=== PATIENT | male | born 1945 | race Two or more races ===

== ENCOUNTER 2021-04-24 18:18 | Inpatient (IN) | payer MEDICARE, OTHER ==
[~2021-04-24] VITALS: Ht 165.1 cm; Wt 71.7 kg
[~2021-04-24 18:18] MED LIST: CEFP200T14 PO; DOXY-326 PO
[2021-04-24 22:24] VITALS: BP 124/69
[2021-04-24] MEDS ORDERED: ZOLPIDEM TARTRATE 5 MG TABLET PO PRN (22:30)
[2021-04-24] MEDS ORDERED: ACETAMINOPHEN 325 MG TABLET PO PRN (22:30)
[2021-04-24] MEDS ORDERED: Z GUARD REMEDY 2 OZ OINT TP PRN (22:30)
[2021-04-24] MEDS ORDERED: MAGNESIUM HYDROXIDE 30 ML UDC PO PRN (22:30)
[2021-04-24] MEDS ORDERED: MAG HYDROX/AL HYDROX/SIMETH 30 ML UDC PO PRN (22:30)
[2021-04-24] MEDS ORDERED: ONDANSETRON HCL/PF 4 MG/2 ML VIAL IVP PRN (22:30)
[2021-04-25] MEDS ORDERED: POLY17PO4 PO (00:51)
[2021-04-25] MEDS ORDERED: HYDR-4209 PO (00:51)
[2021-04-25] MEDS ORDERED: POLYETHYLENE GLYCOL 3350 17 GM POWD.PACK PO PRN (03:00)
[2021-04-25] MEDS ORDERED: HYDROCODONE/APAP 5/325MG TABLET PO PRN (03:00)
[2021-04-25 06:54] LABS: BASOPHILS % (AUTO) 0.3 % (0.0-2.0); EOSINOPHILS % (AUTO) 0.6 % (0.0-6.0); HEMATOCRIT 29 % (39-51); LYMPHOCYTES # (AUTO) 0.6 K/uL (0.8-4.8); MEAN CORPUSCULAR HGB CONC 31 g/dl (31.0-36.0); MEAN CORPUSCULAR VOLUME 76 fL (80-96); MONOCYTES # (AUTO) 0.8 K/uL (0.1-1.30); MONOCYTES % (AUTO) 6.8 % (2.0-12.0); NEUTROPHILS # (AUTO) 10.9 K/uL (1.8-8.9); NEUTROPHILS % (AUTO) 87.3 % (43.0-81.0); PLATELET COUNT (AUTO) 530 K/uL (150-450); RED BLOOD CELL COUNT(AUTO) 3.79 MIL/uL (4.5-6.0); WHITE BLOOD COUNT (AUTO) 12.4 K/uL (4.3-11.0)
[2021-04-25 07:27] LABS: ALANINE AMINOTRANSFERASE 37 U/L (12-78); ALBUMIN 2.1 g/dL (3.4-5.0); ALKALINE PHOSPHATASE 151 U/L (46-116); ASPARTATE AMINOTRANSFERASE 24 U/L (15-37); BILIRUBIN,TOTAL 0.5 mg/dL (0.2-1.0); CARBON DIOXIDE 19 mmol/L (21-32); CHLORIDE 103 mmol/L (98-107); CREATININE 1.9 mg/dL (0.6-1.3); GLUCOSE 95 mg/dL (74-106); MAGNESIUM 2.6 mg/dL (1.8-2.4); PHOSPHORUS 5.7 mg/dL (2.5-4.9); POTASSIUM 4.9 mmol/L (3.5-5.1); SODIUM SERUM 137 mmol/L (136-145); TOTAL PROTEIN, SERUM 6.8 g/dL (6.4-8.2); UREA NITROGEN, BLOOD 49 mg/dL (7-18)
[2021-04-25 07:35] LABS: CHOLESTEROL 120 mg/dL (<200); HDL CHOLESTEROL 32 mg/dL (40-60); LDL 77 mg/dL (0-99); TRIGLYCERIDES 77 mg/dL (30-150)
[2021-04-25 08:00] VITALS: BP 117/60
[2021-04-25] MEDS ORDERED: [UNRECOGNIZED DRUG - OTHER] PO SCH (09:00)
[2021-04-25] MEDS: PANTOPRAZOLE 40 MG TABLET.DR PO SCH (09:25)
[2021-04-25] MEDS: IV NS 0.9% 1,000 ML IV SCH ×2 (10:52→20:42)
[2021-04-25 16:00] VITALS: BP 129/72
[2021-04-25 16:46] LABS: THYROID STIMULATING HORMONE 6.314 uIU/mL (0.358-3.74)
[2021-04-25] MEDS: CEFTRIAXONE 1 G in IV D5W 50 ML IV SCH (17:00)
[2021-04-25 17:45] LABS: PROSTATE SPECIFIC ANTIGEN SCR 0.57 ng/mL (0.00-4.00)
[2021-04-25 20:00] VITALS: BP 134/69
[2021-04-26 03:32] LABS: BILIRUBIN,URINE NEGATIVE (NEGATIVE); COLOR,URINE YELLOW (YELLOW); LEUKOCYTE ESTERASE ,URINE NEGATIVE (NEGATIVE); NITRITE, URINE NEGATIVE (NEGATIVE); PROTEIN,URINE TRACE mg/dl (NEGATIVE); UGLUCOSE NEGATIVE (NEGATIVE); UROBILINOGEN,URINE 0.2 EU/dL (0.2)
[2021-04-26 03:43] LABS: CREATININE, URINE 89.5 MG/DL (30.0-125.0)
[2021-04-26 03:44] LABS: BACTERIA,URINE None seen /HPF (None Seen); RBC,URINE 0-2 /HPF (0-2); SQUAMOUS EPITHELIAL CELL,UR Few /HPF (None Seen); URIC ACID CRYSTALS,URINE Many /HPF (None Seen); URINE AMORPHOUS URATE Moderate /HPF (None Seen); WBC,URINE 0-2 /HPF (0-3)
[2021-04-26] MEDS: IV NS 0.9% 1,000 ML IV SCH ×2 (06:23→20:22)
[2021-04-26 07:07] LABS: AFP, TUMOR MARKER 2.1 ng/mL (0.0-8.3); CARBOHYDRATE AG 19-9 6 U/mL (0-35)
[2021-04-26 08:00] VITALS: BP 124/62
[2021-04-26 08:07] LABS: IMMUNOGLOBULIN A, SERUM 243 mg/dL (61-437); IMMUNOGLOBULIN G, SERUM 1139 mg/dL (603-1613); IMMUNOGLOBULIN M, SERUM 53 mg/dL (15-143)
[2021-04-26 08:22] LABS: BASOPHILS % (AUTO) 0.3 % (0.0-2.0); EOSINOPHILS % (AUTO) 0.3 % (0.0-6.0); HEMATOCRIT 27 % (39-51); HEMOGLOBIN 8.5 g/dL (13.5-17.5); LYMPHOCYTES # (AUTO) 0.6 K/uL (0.8-4.8); LYMPHOCYTES % (AUTO) 5.7 % (20.0-44.0); MEAN CORPUSCULAR HGB CONC 32 g/dl (31.0-36.0); MEAN CORPUSCULAR VOLUME 77 fL (80-96); MONOCYTES # (AUTO) 0.9 K/uL (0.1-1.30); MONOCYTES % (AUTO) 8.3 % (2.0-12.0); NEUTROPHILS # (AUTO) 9.2 K/uL (1.8-8.9); NEUTROPHILS % (AUTO) 85.4 % (43.0-81.0); PLATELET COUNT (AUTO) 471 K/uL (150-450); RED BLOOD CELL COUNT(AUTO) 3.47 MIL/uL (4.5-6.0); WHITE BLOOD COUNT (AUTO) 10.7 K/uL (4.3-11.0)
[2021-04-26 08:40] LABS: CALCIUM, SERUM 8.3 mg/dL (8.5-10.1); CARBON DIOXIDE 21 mmol/L (21-32); CHLORIDE 104 mmol/L (98-107); CREATININE 1.4 mg/dL (0.6-1.3); GLUCOSE 104 mg/dL (74-106); MAGNESIUM 2.3 mg/dL (1.8-2.4); PHOSPHORUS 3.9 mg/dL (2.5-4.9); POTASSIUM 4.7 mmol/L (3.5-5.1); SODIUM SERUM 135 mmol/L (136-145); UREA NITROGEN, BLOOD 30 mg/dL (7-18)
[2021-04-26] MEDS: PANTOPRAZOLE 40 MG TABLET.DR PO SCH (08:53)
[2021-04-26 13:06] LABS: *SPE A/G RATIO 0.6 (0.7-1.7); *SPE ALPHA-1-GLOBULIN 0.6 g/dL (0.0-0.4); *SPE ALPHA-2-GLOBULIN 1.1 g/dL (0.4-1.0); *SPE BETA GLOBULIN 0.9 g/dL (0.7-1.3); *SPE M-SPIKE Not Observed g/dL (Not Observed)
[2021-04-26 16:00] VITALS: BP 121/58
[2021-04-26] MEDS: CEFTRIAXONE 1 G in IV D5W 50 ML IV SCH (16:20)
[2021-04-26 20:00] VITALS: BP 126/66
[2021-04-27 06:15] LABS: BASOPHILS % (AUTO) 0.5 % (0.0-2.0); EOSINOPHILS % (AUTO) 0.5 % (0.0-6.0); HEMATOCRIT 27 % (39-51); HEMOGLOBIN 8.4 g/dL (13.5-17.5); LYMPHOCYTES # (AUTO) 0.7 K/uL (0.8-4.8); LYMPHOCYTES % (AUTO) 6.9 % (20.0-44.0); MEAN CORPUSCULAR HGB CONC 32 g/dl (31.0-36.0); MEAN CORPUSCULAR VOLUME 76 fL (80-96); MONOCYTES # (AUTO) 0.9 K/uL (0.1-1.30); MONOCYTES % (AUTO) 8.8 % (2.0-12.0); NEUTROPHILS # (AUTO) 8.1 K/uL (1.8-8.9); NEUTROPHILS % (AUTO) 83.3 % (43.0-81.0); PLATELET COUNT (AUTO) 454 K/uL (150-450); RED BLOOD CELL COUNT(AUTO) 3.51 MIL/uL (4.5-6.0); WHITE BLOOD COUNT (AUTO) 9.7 K/uL (4.3-11.0)
[2021-04-27 06:44] LABS: CALCIUM, SERUM 8.6 mg/dL (8.5-10.1); CREATININE 1.2 mg/dL (0.6-1.3); MAGNESIUM 2.1 mg/dL (1.8-2.4); PHOSPHORUS 3.4 mg/dL (2.5-4.9); POTASSIUM 4.7 mmol/L (3.5-5.1)
[2021-04-27 08:20] VITALS: BP 124/62
[2021-04-27] MEDS: PANTOPRAZOLE 40 MG TABLET.DR PO SCH (08:50)
[2021-04-27] MEDS: IV NS 0.9% 1,000 ML IV SCH (08:50)
[2021-04-27] MEDS ORDERED: IOHEXOL-300 100 ML VIAL IV ONE (10:48)
[2021-04-27] MEDS: CEFTRIAXONE 1 G in IV D5W 50 ML IV SCH (15:17)
[2021-04-27 16:03] VITALS: BP 126/78
[2021-04-27] MEDS: ENSURE ENLIVE 237 ML LIQUID (VANILLA) PO SCH (17:00)
[2021-04-27 20:00] VITALS: BP 131/72
[2021-04-28] MEDS: IV NS 0.9% 1,000 ML IV SCH (02:15)
[2021-04-28 06:52] LABS: BASOPHILS % (AUTO) 0.5 % (0.0-2.0); EOSINOPHILS % (AUTO) 0.8 % (0.0-6.0); HEMATOCRIT 27 % (39-51); HEMOGLOBIN 8.4 g/dL (13.5-17.5); LYMPHOCYTES # (AUTO) 0.6 K/uL (0.8-4.8); MEAN CORPUSCULAR HGB CONC 31 g/dl (31.0-36.0); MEAN CORPUSCULAR VOLUME 76 fL (80-96); MONOCYTES # (AUTO) 0.9 K/uL (0.1-1.30); MONOCYTES % (AUTO) 9.4 % (2.0-12.0); NEUTROPHILS # (AUTO) 7.9 K/uL (1.8-8.9); NEUTROPHILS % (AUTO) 83.3 % (43.0-81.0); PLATELET COUNT (AUTO) 428 K/uL (150-450); WHITE BLOOD COUNT (AUTO) 9.5 K/uL (4.3-11.0)
[2021-04-28 06:57] LABS: CALCIUM, SERUM 8.5 mg/dL (8.5-10.1); POTASSIUM 4.3 mmol/L (3.5-5.1)
[2021-04-28 08:00] VITALS: BP 116/71
[2021-04-28] MEDS: PANTOPRAZOLE 40 MG TABLET.DR PO SCH (08:11)
[2021-04-28] MEDS: ENSURE ENLIVE 237 ML LIQUID (VANILLA) PO SCH ×3 (08:12→17:04)
[2021-04-28] MEDS: CEFTRIAXONE 1 G in IV D5W 50 ML IV SCH (15:39)
[2021-04-28 15:57] VITALS: BP 121/65
[2021-04-28 20:00] VITALS: BP 122/70
[2021-04-29] MEDS: PANTOPRAZOLE 40 MG TABLET.DR PO SCH (07:30)
[2021-04-29 08:00] VITALS: BP 124/66
[2021-04-29] MEDS: ENSURE ENLIVE 237 ML LIQUID (VANILLA) PO SCH ×3 (09:46→16:42)
[2021-04-29] MEDS: CEFTRIAXONE 1 G in IV D5W 50 ML IV SCH (15:12)
[2021-04-29 21:00] VITALS: BP 118/68
[2021-04-30 06:54] LABS: BASOPHILS # (AUTO) 0.1 K/uL (0.0-0.2); BASOPHILS % (AUTO) 0.5 % (0.0-2.0); EOSINOPHILS % (AUTO) 0.3 % (0.0-6.0); HEMATOCRIT 27 % (39-51); HEMOGLOBIN 8.4 g/dL (13.5-17.5); LYMPHOCYTES # (AUTO) 0.6 K/uL (0.8-4.8); LYMPHOCYTES % (AUTO) 4.7 % (20.0-44.0); MEAN CORPUSCULAR HGB CONC 32 g/dl (31.0-36.0); MEAN CORPUSCULAR VOLUME 75 fL (80-96); MONOCYTES # (AUTO) 0.9 K/uL (0.1-1.30); MONOCYTES % (AUTO) 7.5 % (2.0-12.0); NEUTROPHILS # (AUTO) 10.3 K/uL (1.8-8.9); PLATELET COUNT (AUTO) 410 K/uL (150-450); RED BLOOD CELL COUNT(AUTO) 3.51 MIL/uL (4.5-6.0); WHITE BLOOD COUNT (AUTO) 11.9 K/uL (4.3-11.0)
[2021-04-30 07:21] LABS: CALCIUM, SERUM 8.3 mg/dL (8.5-10.1); POTASSIUM 4.6 mmol/L (3.5-5.1)
[2021-04-30 08:00] VITALS: BP 103/67
[2021-04-30] MEDS: PANTOPRAZOLE 40 MG TABLET.DR PO SCH (08:08)
[2021-04-30] MEDS: ENSURE ENLIVE 237 ML LIQUID (VANILLA) PO SCH ×3 (08:08→16:17)
[2021-04-30] MEDS ORDERED: FENTANYL PF 250MCG/5ML AMPUL IV ONE (13:30)
[2021-04-30] MEDS ORDERED: MIDAZOLAM HCL 5MG/ML VIAL 25 MG/5 ML VIAL IV ONE (13:30)
[2021-04-30] MEDS ORDERED: NALOXONE PREFILLED SYRINGE 2 MG/2 ML SYRINGE IV ONE (13:30)
[2021-04-30] MEDS: CEFTRIAXONE 1 G in IV D5W 50 ML IV SCH (16:17)
[2021-04-30 20:00] VITALS: BP 121/69
[2021-05-01 06:49] LABS: BASOPHILS % (AUTO) 0.4 % (0.0-2.0); EOSINOPHILS % (AUTO) 0.4 % (0.0-6.0); HEMATOCRIT 26 % (39-51); HEMOGLOBIN 8.3 g/dL (13.5-17.5); LYMPHOCYTES # (AUTO) 0.6 K/uL (0.8-4.8); LYMPHOCYTES % (AUTO) 5.6 % (20.0-44.0); MEAN CORPUSCULAR HGB CONC 32 g/dl (31.0-36.0); MEAN CORPUSCULAR VOLUME 76 fL (80-96); MONOCYTES # (AUTO) 0.8 K/uL (0.1-1.30); MONOCYTES % (AUTO) 7.2 % (2.0-12.0); NEUTROPHILS # (AUTO) 9.2 K/uL (1.8-8.9); NEUTROPHILS % (AUTO) 86.4 % (43.0-81.0); PLATELET COUNT (AUTO) 450 K/uL (150-450); RED BLOOD CELL COUNT(AUTO) 3.44 MIL/uL (4.5-6.0); WHITE BLOOD COUNT (AUTO) 10.6 K/uL (4.3-11.0)
[2021-05-01 07:28] LABS: CALCIUM, SERUM 8.7 mg/dL (8.5-10.1); MAGNESIUM 2.2 mg/dL (1.8-2.4); PHOSPHORUS 3.8 mg/dL (2.5-4.9); POTASSIUM 5.4 mmol/L (3.5-5.1)
[2021-05-01 08:13] VITALS: BP 103/68
[2021-05-01] MEDS: PANTOPRAZOLE 40 MG TABLET.DR PO SCH (08:39)
[2021-05-01] MEDS: ENSURE ENLIVE 237 ML LIQUID (VANILLA) PO SCH (08:40)
[2021-05-03] MEDS ORDERED: HYDR-3976 PO (13:06)
== END 2021-05-01 12:30 | disposition home or self-care (01) | DRG 686 ==
LOC: MED 21:10
PROVIDERS: ADMIT Internal Medicine; ATTEND Internal Medicine
PROC: 0W993ZZ Drainage of Right Pleural Cavity, Percutaneous Approach (ICD-10-PCS; principal; 2021-04-25)
PROC: 0TB03ZX Excision of Right Kidney, Percutaneous Approach, Diagnostic (ICD-10-PCS; 2021-04-30)
DX: C64.2 Malignant neoplasm of left kidney, except renal pelvis (principal); J96.01 Acute respiratory failure with hypoxia; N17.0 Acute kidney failure with tubular necrosis; J90 Pleural effusion, not elsewhere classified; E87.2 Acidosis; D68.9 Coagulation defect, unspecified; J98.11 Atelectasis; C78.1 Secondary malignant neoplasm of mediastinum; E86.0 Dehydration; N13.9 Obstructive and reflux uropathy, unspecified; N28.89 Other specified disorders of kidney and ureter; K76.9 Liver disease, unspecified; E27.8 Other specified disorders of adrenal gland; D72.829 Elevated white blood cell count, unspecified; D50.9 Iron deficiency anemia, unspecified; R91.8 Other nonspecific abnormal finding of lung field; E11.9 Type 2 diabetes mellitus without complications; I70.0 Atherosclerosis of aorta; Z87.891 Personal history of nicotine dependence
CPT/HCPCS: 36415; 71045-TC; 71270-TC; 74178; 76770-TC; 76942-TC; 77012-TC; 80048-TC; 80053-TC; 80061-TC; 81001; 82105; 82378; 82570-TC; 82728-TC; 82784; 83540-TC; 83615-TC; 83735-TC; 84100-TC; 84153-TC; 84154-TC; 84155; 84165; 84300-TC; 84439-TC; 84443-TC; 84481; 84702-TC; 85025-TC; 85610-TC; 85730-TC; 86301; 86334; 87040-TC; 87070-TC; 87075-TC; 87081-TC; 87102-TC; 88108-TC; 88305-TC; 88314-TC; 89051-TC; 97112-TC; 97116-TC; 97530-TC; G0378; J0696; J2250; J2310; J3010; J7030; J7060; Q9967

== ENCOUNTER 2021-05-11 15:21 | Inpatient (IN) | payer MEDICARE, OTHER ==
[~2021-05-11] VITALS: Ht 167.6 cm; Wt 64.9 kg
[~2021-05-11 15:21] MED LIST changes: -CEFP200T14 PO; -DOXY-326 PO; +HYDR-3976 PO; +POLY17PO4 PO
--- NOTE | 2021-05-11 16:03 | NUR ---
THE PATIENT IS SENT BY AND BIB BROTHER ONCOLOGIST FOR ELEVATED WBC. THE PATIENT IS ALERT AND ORIENTED X2. DENIES PAIN. IN ROOM AIR AND DENIES SOB. RESPIRATION REGULAR AND UNLABORED. ATTACHED TO THE MONITOR.
[2021-05-11 16:35] LABS: BASOPHILS % (AUTO) 0.2 % (0.0-2.0); EOSINOPHILS % (AUTO) 0.2 % (0.0-6.0); HEMATOCRIT 25 % (39-51); HEMOGLOBIN 7.7 g/dL (13.5-17.5); LYMPHOCYTES # (AUTO) 0.7 K/uL (0.8-4.8); LYMPHOCYTES % (AUTO) 5.1 % (20.0-44.0); MEAN CORPUSCULAR HGB CONC 31 g/dl (31.0-36.0); MEAN CORPUSCULAR VOLUME 76 fL (80-96); MONOCYTES # (AUTO) 1.1 K/uL (0.1-1.30); MONOCYTES % (AUTO) 7.8 % (2.0-12.0); NEUTROPHILS % (AUTO) 86.7 % (43.0-81.0); PLATELET COUNT (AUTO) 573 K/uL (150-450); RED BLOOD CELL COUNT(AUTO) 3.34 MIL/uL (4.5-6.0); WHITE BLOOD COUNT (AUTO) 13.9 K/uL (4.3-11.0)
[2021-05-11 16:54] LABS: ALBUMIN 1.8 g/dL (3.4-5.0); BILIRUBIN,DIRECT 0.5 mg/dL (0.0-0.2); BILIRUBIN,TOTAL 0.9 mg/dL (0.2-1.0); CALCIUM, SERUM 8.3 mg/dL (8.5-10.1); TOTAL PROTEIN, SERUM 6.9 g/dL (6.4-8.2)
[2021-05-11] MEDS ORDERED: CEFTRIAXONE 1GM BAG (ER ONLY) 50 ML IV ONE ×2 (17:30→17:53)
[2021-05-11] MEDS ORDERED: LEVOFLOXACIN (500MG) 500 MG TABLET PO ONE (17:30)
--- NOTE | 2021-05-11 17:36 | NUR ---
COVID SWAB DONE AND SENT TO THE LAB
[2021-05-11 17:37] LABS: BAND % (MANUAL) 1 % (0.0-5.0); LYMPHOCYTES % (MANUAL) 8 % (16-48); MONOCYTES % (MANUAL) 3 % (0-11.0); NEUTROPHILS % (MANUAL) 88 (42-76)
--- NOTE | 2021-05-11 17:44 | NUR ---
[facility] PAGED. AWAITING HOSPITALIST CALL BACK.
[2021-05-11] MEDS ORDERED: LEVOFLOXACIN (500MG) 500 MG TABLET ONE (17:53)
--- NOTE | 2021-05-11 17:56 | NUR ---
JUAN J MOSS ON THE PHONE WITH HOSPITALIST.
--- NOTE | 2021-05-11 18:03 | NUR ---
CALLED NURSING PLATFORM POWER TECHNICIAN FOR TELEMETRY BED.
[2021-05-11] MEDS: PANTOPRAZOLE 40 MG TABLET.DR PO SCH (19:00)
[2021-05-11] MEDS ORDERED: Z GUARD REMEDY 2 OZ OINT TP PRN (19:00)
[2021-05-11] MEDS ORDERED: ONDANSETRON HCL/PF 4 MG/2 ML VIAL IVP PRN (19:00)
[2021-05-11] MEDS: IV NS 0.9% 1,000 ML IV PRN ×2 (19:13→23:01)
--- NOTE | 2021-05-11 19:23 | NUR ---
recieved report from JAYANT Acuña
--- NOTE | 2021-05-11 19:50 | NUR ---
309-2 PER RN PRINTED CIRCUIT BOARD ASSEMBLY REPAIRER.
--- NOTE | 2021-05-11 20:07 | NUR ---
REPORT GIVEN TO RN NINI
--- NOTE | 2021-05-11 20:15 | NUR ---
MS RN ADMITTING NOTE RECEIVED REPORT FROM ARTHUR SABA @[facility]. PT TRANSPORTED BY [facility] AT THIS TIME. A/0X4. PT ABLE TO COMMUNICATE NEEDS. NO SOB NOTED, NO C/O PAIN AT THIS TIME, NO S/S OF ANY APPARENT DISTRESS NOTED. RESPIRATIONS EVEN AND UNLABORED, ACTIVE BOWEL SOUNDS AUSCULTATED THROUGHOUT, ABDOMEN IS NON DISTENDED. BULGARIAN SPEAKING ONLY. SKIN IS INTACT. WARM TO TOUCH. CAPILLARY REFILL <3 SECS, PULSES PRESENT BILATERALLY, GOOD CIRCULATION NOTED. IV ACCESS NOTED IN R FOREARM G#20. INTACT, PATENT, AND FLUSHING WELL. PT'S BELONGINGS ACCOUNTED FOR, AND KEPT AT PT'S BEDSIDE PER PT REQUEST. ASPIRATION AND SAFETY PRECAUTIONS IN PLACE AND MAINTAINED AT ALL TIMES. BED IN LOWEST LOCKED POSITIO, SIDE RAILS UPX2, TABLE AND CALL LIGHT WITHIN REACH. WILL CONTINUE PLAN OF CARE.
[2021-05-11 21:05] VITALS: BP 104/69
--- NOTE | 2021-05-11 21:08 | NUR ---
TRANSFERRED PT TO 309-2
[2021-05-11] MEDS: CEFEPIME 2 GM in IV D5W 100 ML IV SCH (22:29)
[2021-05-11] MEDS: VANCOMYCIN 1 GM in IV D5W 250ml IV SCH (22:29)
[2021-05-11] MEDS: ENOXAPARIN SODIUM 40 MG/0.4 ML DISP.SYRIN SQ SCH (22:30)
[2021-05-11] MEDS: HYDROCODONE/APAP 10/325MG TABLET PO PRN (22:56)
[2021-05-12 00:22] VITALS: BP 104/69
--- NOTE | 2021-05-12 06:22 | NUR ---
MS RN CLOSING NOTE PT IS IN BED AWAKE. A/OX4. PT IS STABLE ON 2L OXYGEN VIA NC. NO SOB OR RESPIRATORY DISTRESS NOTED THROUGH SHIFT.ALL NEEDS HAVE BEEN MET. ALL CARE, NEEDS, MEDICATIONS, AND TREATMENT ADMINISTERED ANTICIPATED PER ORDER. PAIN MANAGEMENT ADMINISTERED PER ORDER. SAFETY, SEIZURE, AND ASPIRATION PRECAUTIONS MAINTAINED AT ALL TIMES. BED IN LOWEST LOCKED POSITION, HOB ELEVATED, SIDE RAILS UP X2, CALL LIGHT AND TABLE WITHIN REACH. WILL ENDORSE TO ONCOMING NURSE.
[2021-05-12 07:17] LABS: BASOPHILS # (AUTO) 0.1 K/uL (0.0-0.2); BASOPHILS % (AUTO) 0.7 % (0.0-2.0); EOSINOPHILS % (AUTO) 0.2 % (0.0-6.0); HEMATOCRIT 31 % (39-51); LYMPHOCYTES # (AUTO) 0.5 K/uL (0.8-4.8); LYMPHOCYTES % (AUTO) 3.6 % (20.0-44.0); MEAN CORPUSCULAR HGB CONC 29 g/dl (31.0-36.0); MEAN CORPUSCULAR VOLUME 80 fL (80-96); MONOCYTES # (AUTO) 0.2 K/uL (0.1-1.30); MONOCYTES % (AUTO) 1.2 % (2.0-12.0); NEUTROPHILS # (AUTO) 12.2 K/uL (1.8-8.9); NEUTROPHILS % (AUTO) 94.3 % (43.0-81.0); PLATELET COUNT (AUTO) 562 K/uL (150-450); RED BLOOD CELL COUNT(AUTO) 3.84 MIL/uL (4.5-6.0); WHITE BLOOD COUNT (AUTO) 12.9 K/uL (4.3-11.0)
[2021-05-12 07:30] LABS: ALBUMIN 1.7 g/dL (3.4-5.0); BILIRUBIN,TOTAL 0.8 mg/dL (0.2-1.0); CALCIUM, SERUM 8.1 mg/dL (8.5-10.1); PHOSPHORUS 4.2 mg/dL (2.5-4.9); POTASSIUM 4.8 mmol/L (3.5-5.1); TOTAL PROTEIN, SERUM 6.7 g/dL (6.4-8.2)
--- NOTE | 2021-05-12 07:42 | NUR ---
RN NOTE 05/11 190 PROTONIX TABLET NOT GIVEN BY NIGHT RN.
[2021-05-12 08:00] VITALS: BP 125/71
--- NOTE | 2021-05-12 08:00 | NUR ---
RN OPENING NOTE PT AWAKE IN BED RESTING. ON 2L NC WITH NO SOB OR RESPIRATORY DISTRESS PRESENT. A/O X4 AND UNDERSTANDS ROMANIAN. NO COMPLAINT OF PAIN OR NAUSEA. NO SENIOR WEALTH ADVISOR PRESENT. NO EDEMA PRESENT. PT IS SELF AMBULATORY WITH BATHROOM PRIVILEGES. URINAL AT BEDSIDE. SKIN IS INTACT. IV PRESENT ON R FA 20G AND FLUSHES WELL. NS RUNNING AT 75 ML/HR. LABS AND ORDERS REVIEWED. SAFETY MEASURES IN PLACE. SIDE RAILS RAISED. BED LOWERED. CALL LIGHT WITHIN REACH. WILL CONTINUE TO MONITOR.
[2021-05-12] MEDS: PANTOPRAZOLE 40 MG TABLET.DR PO SCH (08:01)
[2021-05-12] MEDS: CEFEPIME 2 GM in IV D5W 100 ML IV SCH ×2 (08:02→20:03)
[2021-05-12] MEDS: VANCOMYCIN 1 GM in IV D5W 250ml IV SCH ×2 (09:13→21:25)
[2021-05-12 10:36] LABS: THYROID STIMULATING HORMONE 6.233 uIU/mL (0.358-3.74)
[2021-05-12] MEDS: ENSURE ENLIVE 237 ML LIQUID (VANILLA) PO SCH ×2 (12:29→16:00)
[2021-05-12] MEDS: ACETAMINOPHEN 325 MG TABLET PO PRN (15:59)
--- NOTE | 2021-05-12 15:59 | NUR ---
RN NOTE PT RUNNING HR OF 155 AND TEMP OF 100.3. SOB PRESENT, BUT NOT FURTHER DISTRESS. COOLING MEASURES IMPLEMENTED AND TYLENOL GIVEN. CN AWARE. WILL RECHECK TEMP AND HR IN 15 MINUTES. WILL CONTINUE TO MONITOR.
[2021-05-12 16:00] VITALS: BP 137/85
--- NOTE | 2021-05-12 16:15 | NUR ---
RN NOTE PT TEMP OF 98.2. WILL CONTINUE TO MONITOR.
--- NOTE | 2021-05-12 18:33 | NUR ---
RN CLOSING NOTE PT AWAKE IN BED RESTING. ON 2L NC WITH NO SOB OR RESPIRATORY DISTRESS PRESENT. A/O X4 AND UNDERSTANDS DUTCH. NO COMPLAINT OF PAIN OR NAUSEA. NO ATOMIZER ASSEMBLER PRESENT. NO EDEMA PRESENT. PT IS SELF AMBULATORY WITH BATHROOM PRIVILEGES. URINAL AT BEDSIDE. SKIN IS INTACT. IV PRESENT ON R FA 20G AND FLUSHES WELL. NS RUNNING AT 75 ML/HR. ROUTINE MEDS GIVEN. LABS AND ORDERS REVIEWED. SAFETY MEASURES IN PLACE. SIDE RAILS RAISED. BED LOWERED. CALL LIGHT WITHIN REACH. WILL GIVE REPORT TO NIGHT NURSE FOR AMOS.
--- NOTE | 2021-05-12 19:10 | NUR ---
RN OPENING NOTES PT RESTING IN BED, A/OX4, ABLE TO VERBALIZE ALL NEEDS. HE DENIES ANY PAIN OR DISCOMFORT AT THIS TIME. IV SITE ON R-FA INTACT, PATENT AND FLUSHES WELL. PT IS AFEBRILE. ON O2 @2LPM VIA NC. O2 SAT 97%. PT DENIES SOB AT THIS TIME. NO ACUTE DISTRESS NOTED. SAFETY MEASURES IN PLACE, BED IN LOWEST LOCKED POSITION, S/R UP X2, CALL LIGHT AND TABLE WITHIN EASY REACH. WILL CONTINUE TO MONITOR.
[2021-05-12 20:00] VITALS: BP 105/60
[2021-05-12] MEDS: ENOXAPARIN SODIUM 40 MG/0.4 ML DISP.SYRIN SQ SCH (20:15)
[2021-05-13] MEDS: IV NS 0.9% 1,000 ML IV PRN (05:44)
--- NOTE | 2021-05-13 06:43 | NUR ---
RN CLOSING NOTES PT RESTING IN BED, EASILY AROUSABLE TO STIMULI, A/OX4, DENIES ANY PAIN OR DISCOMFORT. NO SOB. SLEPT WELL DURING THE NIGHT. NO ACUTE DISTRESS NOTED. ALL NEEDS ATTENDED TO. SAFETY MEASURES MAINTAINED, BED IN LOWEST LOCKED POSITION, S/R UP X2, CALL LIGHT WITHIN REACH. WILL ENDORSE TO NEXT SHIFT NURSE.
[2021-05-13 06:47] LABS: CALCIUM, SERUM 8.1 mg/dL (8.5-10.1); CREATININE 1.1 mg/dL (0.6-1.3); POTASSIUM 5.4 mmol/L (3.5-5.1)
[2021-05-13] MEDS: PANTOPRAZOLE 40 MG TABLET.DR PO SCH (07:45)
--- NOTE | 2021-05-13 08:00 | NUR ---
RN OPENING NOTE PT AWAKE IN BED RESTING. ON 2L NC WITH NO SOB OR RESPIRATORY DISTRESS PRESENT. A/O X4 AND UNDERSTANDS [place] R[place]. NO COMPLAINT OF PAIN OR NAUSEA. NO INDUSTRIAL ECOLOGY TECHNICIAN PRESENT. NO EDEMA PRESENT. PT IS SELF AMBULATORY WITH BATHROOM PRIVILEGES. COMMODE AT BEDSIDE. SKIN IS INTACT. IV PRESENT ON R FA 20G AND FLUSHES WELL. NS RUNNING AT 75 ML/HR. LABS AND ORDERS REVIEWED. SAFETY MEASURES IN PLACE. SIDE RAILS RAISED. BED LOWERED. CALL LIGHT WITHIN REACH. WILL CONTINUE TO MONITOR.
[2021-05-13] MEDS: ENSURE ENLIVE 237 ML LIQUID (VANILLA) PO SCH ×3 (08:07→16:53)
[2021-05-13] MEDS: CEFEPIME 2 GM in IV D5W 100 ML IV SCH ×2 (08:07→20:40)
[2021-05-13] MEDS ORDERED: SODIUM POLYSTYRENE SULFONATE 15 G/60 ML BOTTLE PO ONE (09:00)
[2021-05-13] MEDS: VANCOMYCIN 1 GM in IV D5W 250ml IV SCH (09:24)
--- NOTE | 2021-05-13 18:40 | NUR ---
RN CLOSING NOTE PT AWAKE IN BED RESTING. ON RA WITH NO SOB OR RESPIRATORY DISTRESS PRESENT. A/O X4 AND UNDERSTANDS [place]. NO COMPLAINT OF PAIN OR NAUSEA. NO WEB OFFSET PRESS FEEDER PRESENT. NO EDEMA PRESENT. PT IS SELF AMBULATORY WITH BATHROOM PRIVILEGES. URINAL AT BEDSIDE. SKIN IS INTACT. IV PRESENT ON R FA 20G AND FLUSHES WELL. NS RUNNING AT 75 ML/HR. ROUTINE MEDS GIVEN. LABS AND ORDERS REVIEWED. SAFETY MEASURES IN PLACE. SIDE RAILS RAISED. BED LOWERED. CALL LIGHT WITHIN REACH. WILL GIVE REPORT TO NIGHT NURSE FOR AMOS.
--- NOTE | 2021-05-13 19:30 | NUR ---
RN NOTES Received patient awake on his bed, a/ox3, Albanian speaking, denies pain, no SOB, bed in locked position, call light within reach, siderailsupx2, will continue to monitor
[2021-05-13 20:09] VITALS: BP 124/53
[2021-05-13] MEDS: ENOXAPARIN SODIUM 40 MG/0.4 ML DISP.SYRIN SQ SCH (20:40)
[2021-05-13] MEDS: VANCOMYCIN 0.75 GM in IV D5W 250 ML IV SCH (22:08)
--- NOTE | 2021-05-14 00:43 | NUR ---
RN NOTES Patient asked for sleeping pill, got an order from Marck Nguyen ambien 5mg po PRN, order noted and carried out
[2021-05-14] MEDS: ZOLPIDEM TARTRATE 5 MG TABLET PO PRN ×2 (01:02→21:18)
--- NOTE | 2021-05-14 01:05 | NUR ---
RN NOTES Patient asked for sleeping pills- Ambien 5 mg po given as ordered
[2021-05-14] MEDS: ACETAMINOPHEN 325 MG TABLET PO PRN (02:31)
[2021-05-14 06:00] VITALS: BP 124/53
--- NOTE | 2021-05-14 06:29 | NUR ---
RN NOTES Sleeping but arousable, not in distress, no pain, noted, morning care rendered, call light within reach, cariupx2, pt. needs attended
[2021-05-14 06:49] LABS: BASOPHILS % (AUTO) 0.2 % (0.0-2.0); EOSINOPHILS % (AUTO) 0.9 % (0.0-6.0); HEMATOCRIT 24 % (39-51); HEMOGLOBIN 7.4 g/dL (13.5-17.5); LYMPHOCYTES # (AUTO) 0.5 K/uL (0.8-4.8); LYMPHOCYTES % (AUTO) 5.2 % (20.0-44.0); MEAN CORPUSCULAR HGB CONC 31 g/dl (31.0-36.0); MEAN CORPUSCULAR VOLUME 77 fL (80-96); MONOCYTES # (AUTO) 0.6 K/uL (0.1-1.30); MONOCYTES % (AUTO) 5.8 % (2.0-12.0); NEUTROPHILS # (AUTO) 9.2 K/uL (1.8-8.9); NEUTROPHILS % (AUTO) 87.9 % (43.0-81.0); PLATELET COUNT (AUTO) 442 K/uL (150-450); RED BLOOD CELL COUNT(AUTO) 3.09 MIL/uL (4.5-6.0); WHITE BLOOD COUNT (AUTO) 10.4 K/uL (4.3-11.0)
--- NOTE | 2021-05-14 07:30 | NUR ---
MS RN OPENING NOTE RECEIVED PT AWAKE ON BED AND A/0 X4. ON O2 AT 2LPM VIA NASAL CANNULA WITH NO SOB OR RESPIRATORY DISTRESS PRESENT. WITH NO COMPLAINT OF PAIN OR NAUSEA. WITH IV ACCESS AT RIGHT FA 20G INTACT AND PATENT WITH NS RUNNING AT 75 ML/HR. SAFETY MEASURES IN PLACED. CALL LIGHT WITHIN REACH. BED ON LOWEST AND LOCKED POSITION WITH SIDE RAILS UP X2. WILL CONTINUE TO MONITOR.
[2021-05-14 07:37] LABS: CREATININE 0.9 mg/dL (0.6-1.3)
[2021-05-14 08:00] VITALS: BP 100/60
[2021-05-14] MEDS: PANTOPRAZOLE 40 MG TABLET.DR PO SCH (08:19)
[2021-05-14] MEDS: ENSURE ENLIVE 237 ML LIQUID (VANILLA) PO SCH ×3 (08:21→17:45)
[2021-05-14] MEDS: CEFEPIME 2 GM in IV D5W 100 ML IV SCH ×2 (09:12→20:05)
[2021-05-14] MEDS: VANCOMYCIN 0.75 GM in IV D5W 250 ML IV SCH ×2 (10:01→21:54)
[2021-05-14 16:00] VITALS: BP 126/70
[2021-05-14] MEDS: IV NS 0.9% 1,000 ML IV PRN (17:45)
--- NOTE | 2021-05-14 18:57 | NUR ---
MS RN OPENING NOTE PT AWAKE ON BED AND A/0 X4. ON O2 AT 2LPM VIA NASAL CANNULA WITH NO SOB OR RESPIRATORY DISTRESS PRESENT. WITH NO COMPLAINT OF PAIN OR NAUSEA. WITH IV ACCESS AT RIGHT FA 20G INTACT AND PATENT WITH NS RUNNING AT 75 ML/HR. SAFETY MEASURES IN PLACED. CALL LIGHT WITHIN REACH. BED ON LOWEST AND LOCKED POSITION WITH SIDE RAILS UP X2. WILL ENDORSE TO NEXT SHIFT FOR AMOS.
--- NOTE | 2021-05-14 18:58 | NUR ---
MS RN CLOSING NOTES PT AWAKE ON BED AND A/0 X4. ON O2 AT 2LPM VIA NASAL CANNULA WITH NO SOB OR RESPIRATORY DISTRESS PRESENT. WITH NO COMPLAINT OF PAIN OR NAUSEA. WITH IV ACCESS AT RIGHT FA 20G INTACT AND PATENT WITH NS RUNNING AT 75 ML/HR. SAFETY MEASURES IN PLACED. CALL LIGHT WITHIN REACH. BED ON LOWEST AND LOCKED POSITION WITH SIDE RAILS UP X2. WILL ENDORSE TO NEXT SHIFT FOR AMOS.
--- NOTE | 2021-05-14 19:49 | NUR ---
MS RN OPENING NOTE RECEIVED PT AWAKE IN BED. A/O X4. PT IS ON 2LPM O2 VIA NC. NO SOB OR S/S OF RESPIRATORY DISTRESS NOTED. PT HAS NO C/O PAIN OR DISCOMFORT AT THIS TIME. IV ACCESS IN RFA #20 INFUSING NS AT 75 ML/HR, INTACT AND PATENT. SAFETY PRECAUTIONS MAINTAINED. BED IN LOWEST LOCKED POSITION, HOB ELEVATED, SIDE RAILS UP X2. CALL LIGHT AND TABLE WITHIN REACH. WILL CONTINUE WITH PLAN OF CARE.
[2021-05-14 20:00] VITALS: BP 132/56
[2021-05-14] MEDS: ENOXAPARIN SODIUM 40 MG/0.4 ML DISP.SYRIN SQ SCH (20:28)
--- NOTE | 2021-05-14 20:28 | NUR ---
LOVENOX 40MG SQ WITHHELD DUE TO UPCOMING US GUIDED THORACENTESIS ON 05/15/21. WILL CONTINUE TO MONITOR PT.
[2021-05-15 06:48] LABS: BASOPHILS % (AUTO) 0.3 % (0.0-2.0); EOSINOPHILS % (AUTO) 0.6 % (0.0-6.0); HEMATOCRIT 23 % (39-51); HEMOGLOBIN 7.2 g/dL (13.5-17.5); LYMPHOCYTES # (AUTO) 0.5 K/uL (0.8-4.8); LYMPHOCYTES % (AUTO) 5.3 % (20.0-44.0); MEAN CORPUSCULAR HGB CONC 31 g/dl (31.0-36.0); MEAN CORPUSCULAR VOLUME 77 fL (80-96); MONOCYTES # (AUTO) 0.8 K/uL (0.1-1.30); MONOCYTES % (AUTO) 7.9 % (2.0-12.0); NEUTROPHILS # (AUTO) 8.7 K/uL (1.8-8.9); NEUTROPHILS % (AUTO) 85.9 % (43.0-81.0); PLATELET COUNT (AUTO) 372 K/uL (150-450); WHITE BLOOD COUNT (AUTO) 10.1 K/uL (4.3-11.0)
[2021-05-15 06:57] LABS: CALCIUM, SERUM 7.9 mg/dL (8.5-10.1); CREATININE 0.8 mg/dL (0.6-1.3); POTASSIUM 3.5 mmol/L (3.5-5.1)
--- NOTE | 2021-05-15 07:00 | NUR ---
MS RN CLOSING NOTE PT IS AWAKE IN BED. A/O X4. PT IS ON 2LPM O2 VIA NC. NO SOB OR S/S OF RESPIRATORY DISTRESS NOTED. PT HAS NO C/O PAIN OR DISCOMFORT AT THIS TIME. IV ACCESS IS INTACT, PATENT, AND FLUSHING WELL. ALL NEEDS HAVE BEEN MET. SAFETY PRECAUTIONS MAINTAINED AT ALL TIMES. BED IN LOWEST LOCKED POSITION, HOB ELEVATED, SIDE RAILS UP X2. CALL LIGHT AND TABLE WITHIN REACH. WILL ENDORSE TO ONCOMING NURSE FOR AMOS.
--- NOTE | 2021-05-15 07:52 | NUR ---
RN MS NOTES PT IN BED, AWAKE, ALERT AND ORIENTED, EATING BREAKFAST, NO COMPLAINT OF PAIN, NOT IN DISTRESS, CALL LIGHT WITHIN REACH, NEEDS ATTENDED.
[2021-05-15 08:00] VITALS: BP 113/62
[2021-05-15] MEDS: PANTOPRAZOLE 40 MG TABLET.DR PO SCH (08:12)
[2021-05-15] MEDS: CEFEPIME 2 GM in IV D5W 100 ML IV SCH ×2 (08:12→20:06)
[2021-05-15] MEDS: ENSURE ENLIVE 237 ML LIQUID (VANILLA) PO SCH ×3 (08:12→17:05)
--- NOTE | 2021-05-15 10:43 | NUR ---
RN MS NOTES S/P RIGHT LUNG THORACENTESIS BY DR. LINDSEY AT BEDSIDE, PT TOLERATED PROCEDURE WELL, NO BLEEDING NOTED TO SITE, OBTAINED 1560 ML OF PLEURAL FLUID, SENT TO LAB FOR CYTOLOGY, PT IN BED RESTING, NO SOB NOTED, STAT CXR DONE ORDERED.
[2021-05-15] MEDS: VANCOMYCIN 0.75 GM in IV D5W 250 ML IV SCH ×2 (12:24→22:07)
[2021-05-15] MEDS: HYDROCODONE/APAP 10/325MG TABLET PO PRN ×2 (12:51→20:05)
[2021-05-15 16:00] VITALS: BP 108/60
--- NOTE | 2021-05-15 18:22 | NUR ---
RN MS NOTES PT IN BED, AWAKE, ALERT AND ORIENTED, DENIES PAIN AT THIS TIME, BREATHING PATTERN NORMAL, CALL LIGHT WITHIN REACH, ASSISTED TO BATHROOM NEEDED, ALL NEEDS ATTENDED.
--- NOTE | 2021-05-15 19:45 | NUR ---
MSRN FULLY AWAKE, NEPHEW AT BEDSIDE. PATIENT ALERT AND ORIENTED X4, COOPERATIVE. STATES BILATERAL BACK PAIN FROM THORACENTHESIS SITE THIS MORNING. STATED WAS POKED TWICE AND WAS PAINFUL. NO SOB, V/S STABLE FOR NOW. NORCO ADMINISTERED WITH RELIEF AFTER FEW HOURS, FALLEN ASLEEP. IVF CONTINUED, DUE ANIBIOTICS ADMINISTERED. COSELY WATCHED.
[2021-05-15 20:00] VITALS: BP 107/51
[2021-05-15] MEDS: IV NS 0.9% 1,000 ML IV PRN (20:16)
[2021-05-15] MEDS: ENOXAPARIN SODIUM 40 MG/0.4 ML DISP.SYRIN SQ SCH (21:21)
--- NOTE | 2021-05-15 23:52 | NUR ---
MSRN ASLEEP STILL EASILY AWAKENED WHEN CALLED. NO OTHER NEEDS MADE. BSC NEEDED WILL CALL FOR ASSISTANCE. SAFETY PRECAUTIONS EMPHASIZED WELL UNDERSTOOD.
[2021-05-16 07:03] LABS: CALCIUM, SERUM 7.8 mg/dL (8.5-10.1); CREATININE 0.9 mg/dL (0.6-1.3); POTASSIUM 4.1 mmol/L (3.5-5.1)
--- NOTE | 2021-05-16 07:06 | NUR ---
MSRN SLEPT GOOD MOST OF THE NIGHT. PT EVAL TODAY. ALL NEEDS ATTENDED
--- NOTE | 2021-05-16 07:22 | NUR ---
MS RN OPENING NOTES RECEIVED PT AWAKE IN BED IN NO ACUTE SIGNS FO DISTRESS. HOB ELEVATED. A/0 X4. VERBALLY RESPONSIVE, DENIES PAIN OR ANY DISCOMFORTS AT THIS TIME. ON ROOM AIR, TOLERATING WELL WITH NO SOB NOTED. IV ACCESS AT RIGHT FA 20G INTACT AND PATENT. SAFETY MEASURES IN PLACED: CALL LIGHT WITHIN REACH. BED ON LOWEST AND LOCKED POSITION WITH SIDE RAILS UP X2. WILL CONTINUE TO MONITOR PT ACCORDINGLY.
--- NOTE | 2021-05-16 07:52 | NUR ---
MS RN OPENING NOTES RECEIVED PT AWAKE IN BED IN NO ACUTE SIGNS FO DISTRESS. HOB ELEVATED. A/0 X3-4. ABLE TO MAKE NEEDS KNOWN, HANDS WERE LITTLE SHAKY, DR FREEMAN AWARE, PRN ATIVAN 1MG IVP ADMINISTERED ORDERED. ON ROOM AIR, TOLERATING WELL WITH NO SOB NOTED. IV ACCESS ON RIGHT FA 22G AND RIGHT HAND 20G BOTH INTACT AND PATENT. SAFETY MEASURES IN PLACED: CALL LIGHT WITHIN REACH. BED ON LOWEST AND LOCKED POSITION WITH SIDE RAILS UP X2. WILL CONTINUE TO MONITOR PT ACCORDINGLY. Addendum: 05/16/21 at 1151 by BRIDGET NAZARIO RN ERROR: WRONG PATIENT.
[2021-05-16 08:00] VITALS: BP 108/65
[2021-05-16] MEDS: CEFEPIME 2 GM in IV D5W 100 ML IV SCH (08:11)
[2021-05-16] MEDS: ENSURE ENLIVE 237 ML LIQUID (VANILLA) PO SCH ×3 (08:11→17:17)
[2021-05-16] MEDS: PANTOPRAZOLE 40 MG TABLET.DR PO SCH (08:11)
[2021-05-16] MEDS: VANCOMYCIN 0.75 GM in IV D5W 250 ML IV SCH (09:09)
[2021-05-16] MEDS ORDERED: CEFE2FRO IV (15:03)
[2021-05-16] MEDS: HYDROCODONE/APAP 10/325MG TABLET PO PRN (15:18)
--- NOTE | 2021-05-16 15:19 | NUR ---
RN NOTES PT C/O PAIN ON HIS BACK AT THORACENTESIS SITES, 8/10 SCALE, PRN NORCO 10/325 MG PO GIVEN AT 1518. WILL CONTINUE TO MONITOR AND REASSESS PT.
[2021-05-16 16:00] VITALS: BP 103/78
--- NOTE | 2021-05-16 17:25 | NUR ---
RN NOTES PATIENT FOR DISCHARGE TO [facility], PICK-UP TIME IS 1900. CALLED AND REPORT/DISCHARGE INSTRUCTIONS GIVEN TO RNS CLARA WITH VERBALIZATION OF UNDERSTANDING. PT'S BROTHER HERI CALLED TO PT'S PHONE, INFORMED HIM THAT PT WILL BE DISCHARGE TO [facility], SNF'S ADDRESS, TEL# AND PT'S ROOM # WAS GIVEN TO HIM.
--- NOTE | 2021-05-16 19:14 | NUR ---
MS RN CLOSING NOTES PT IN BED AWAKE AND WATCHING TV AT THIS TIME. HOB ELEVATED. A/0 X4. ABLE TO MAKE NEEDS KNOWN, SPEAKS MOSTLY IN [place]. ON 02 VIA N/C AT 2LPM, NOTED WITH SOB ON EXERTION. IV ACCESS AT RAC 22G INTACT, PATENT AND FLUSHES WELL. ALL NEEDS AND CARE ATTENDED WELL. SAFETY MEASURES IN PLACE: CALL LIGHT WITHIN REACH. BED ON LOWEST AND LOCKED POSITION WITH SIDE RAILS UP X2. PATIENT FOR DISCHARGED TONIGHT TO [facility]. ENDORSED TO JAYANT SHANNON. GARAGE DOOR INSTALLER.
--- NOTE | 2021-05-16 19:45 | NUR ---
MS RN OPENING NOTES RECEIVED PT AWAKE IN BED. PT IS A/Ox4, LATVIAN SPEAKING. PT IS ON OXYGEN VIA NASAL CANNULA 2L/MIN AND TOLERATING WELL. NO SOB NOTED. NO S/SX OF RESPIRATORY DISTRESS NOTED. IV ACCESS IN RAC #22, PATENT, INTACT, AND FLUSHING WELL, SALINE LOCKED. SAFETY MEASURES IN PLACE: BED IN LOWEST, LOCKED POSITION, BRAKES ON, SIDERAILS UP x2. CALL LIGHT AND TABLE WITHIN REACH. WILL CONTINUE TO MONITOR.
--- NOTE | 2021-05-16 20:09 | NUR ---
DISCHARGE NOTES PATIENT DISCHARGED. ACCOMPANIED BY 2 EMT'S TO [facility]. IV ACCESS IN R AC#22. BELONGINGS ACCOUNTED FOR. DISCHARGE AND BELONGINGS FORM SIGNED. EDUCATION PROVIDED. SKIN INTACT.
[2021-05-17] MEDS ORDERED: VANCOMYCIN 0.75 GM in IV D5W 250 ML IV SCH (04:00)
== END 2021-05-16 20:10 | DRG 871 ==
LOC: ER 15:25 → MED 20:48
PROVIDERS: ADMIT Nurse Practitioner Acute Care; ATTEND Nurse Practitioner Acute Care
PROC: 0W993ZZ Drainage of Right Pleural Cavity, Percutaneous Approach (ICD-10-PCS; principal; 2021-05-15)
DX: A41.9 Sepsis, unspecified organism (principal); J15.9 Unspecified bacterial pneumonia; E87.2 Acidosis; D68.69 Other thrombophilia; E44.0 Moderate protein-calorie malnutrition; C64.9 Malignant neoplasm of unspecified kidney, except renal pelvis; C78.7 Secondary malignant neoplasm of liver and intrahepatic bile duct; J91.0 Malignant pleural effusion; E22.2 Syndrome of inappropriate secretion of antidiuretic hormone; C78.00 Secondary malignant neoplasm of unspecified lung; Z20.822 Contact with and (suspected) exposure to COVID-19; E83.51 Hypocalcemia; E87.5 Hyperkalemia; D50.9 Iron deficiency anemia, unspecified; Z87.891 Personal history of nicotine dependence; E03.8 Other specified hypothyroidism; E88.09 Other disorders of plasma-protein metabolism, not elsewhere classified; D47.3 Essential (hemorrhagic) thrombocythemia; R59.1 Generalized enlarged lymph nodes; Z68.23 Body mass index [BMI] 23.0-23.9, adult; E86.1 Hypovolemia
CPT/HCPCS: 36415; 71045-TC; 71250-TC; 80048-TC; 80053-TC; 80061-TC; 80076-TC; 80202-TC; 82728-TC; 82962-TC; 83540-TC; 83605-TC; 84100-TC; 84439-TC; 84443-TC; 85025-TC; 85610-TC; 85730-TC; 87040-TC; 87081-TC; 87086-TC; 88108-TC; 88305-TC; 88341; 88342; 97112-TC; 97116-TC; 97530-TC; C9803; G0378; J0692; J0696; J1650; J3370; J7030; J7060